=== PATIENT | female | born 1960 | race Caucasian/White ===

== ENCOUNTER 2018-12-27 06:39 | Day surgery (SDC) | payer OTHER ==
[~2018-12-27] VITALS: Ht 149.9 cm; Wt 88.0 kg
[~2018-12-27 06:39] MED LIST: SODIUM CHLORIDE 0.9% 1,000 ML IV ONE
[2018-12-27] MEDS ORDERED: LIDOCAINE 4% 50 ML SOLUTION TP ONE (06:40)
[2018-12-27] MEDS ORDERED: ALBUTEROL SULFATE 2.5 MG/0.5 ML NEB SOLUTION NEB ONE (06:40)
[2018-12-27] MEDS ORDERED: BENZOCAINE 20% 50 MCG/SPRAY 57 GM TP ONE (06:40)
[2018-12-27] MEDS ORDERED: LIDOCAINE 2% 30 ML JELLY TP ONE (06:40)
[2018-12-27] MEDS ORDERED: SODIUM CHLORIDE 0.9% 1,000 ML IV ONE (07:00)
[2018-12-27] MEDS ORDERED: FentaNYL CITRATE-PF 100 MCG/2 ML VIAL ONE (07:02)
[2018-12-27] MEDS ORDERED: MIDAZOLAM HCL 2 MG/2 ML VIAL ONE (07:02)
[2018-12-27] MEDS ORDERED: LANS30 PO (07:24)
[2018-12-27] MEDS ORDERED: AMOX500C2 PO (07:24)
[2018-12-27] MEDS ORDERED: VALS160T2 PO (07:24)
[2018-12-27] MEDS ORDERED: METF-960 PO (07:24)
[2018-12-27] MEDS ORDERED: POLY17PO29 PO (07:24)
[2018-12-27] MEDS ORDERED: CHOL50004 PO (07:24)
[2018-12-27] MEDS ORDERED: MONT10TA21 PO (07:24)
[2018-12-27] MEDS ORDERED: CLAR250T39 PO (07:24)
[2018-12-27] MEDS ORDERED: ATOR40TA28 PO (07:24)
[2018-12-27 07:56] LABS: GLUCOMETER DEV NAME(LOC) SDS.; GLUCOSE,POINT OF CARE 84 MG/DL (70-110)
[2018-12-27] MEDS ORDERED: MethylPREDNISolone SOD SUCC 125 MG/2 ML VIAL IVP ONE (08:30)
[2018-12-27] MEDS ORDERED: MethylPREDNISolone SOD SUCC 125 MG/2 ML VIAL ONE (08:34)
[2018-12-27] MEDS ORDERED: OXYGEN THERAPY IH SCH (20:00)
== END 2018-12-27 10:25 | disposition home or self-care (01) ==
LOC: SURGERY 06:39
PROVIDERS: ATTEND Internal Medicine Critical Care Medicine
DX: R05 Cough (principal); J34.89 Other specified disorders of nose and nasal sinuses; J98.8 Other specified respiratory disorders; J38.4 Edema of larynx; B37.0 Candidal stomatitis; I10 Essential (primary) hypertension; E78.00 Pure hypercholesterolemia, unspecified; E11.9 Type 2 diabetes mellitus without complications; J45.909 Unspecified asthma, uncomplicated; Z90.710 Acquired absence of both cervix and uterus; Z79.899 Other long term (current) drug therapy
CPT/HCPCS: 31623; 31624; 71045; 82962; 87015; 87070; 87101; 87205; 87206; 87220; J2250; J2930; J3010; J7030